=== PATIENT | female | born 1955 | race Caucasian/White ===

== ENCOUNTER 2018-10-03 19:53 | Emergency (ER) | payer OTHER ==
[~2018-10-03] VITALS: Ht 157.5 cm; Wt 119.7 kg
[~2018-10-03 19:53] MED LIST: HYZAAR 100-251 UDTAB; [UNRECOGNIZED DRUG - OTHER]
[2018-10-03] MEDS ORDERED: GLIMEPIRIDE4 MG (20:30)
[2018-10-03] MEDS ORDERED: HYDRALAZINE HCL25 MG (20:31)
[2018-10-03] MEDS ORDERED: CLARITIN10 M2 (20:32)
[2018-10-03] MEDS ORDERED: ATORVASTATIN CA40 MG (20:32)
[2018-10-03] MEDS ORDERED: LANTUS SOL100 UNIT/1 (20:32)
[2018-10-03] MEDS ORDERED: ECOTRIN81 MG (20:33)
== END 2018-10-03 22:52 | disposition home or self-care (01) ==
LOC: ER 19:53
DX: M54.89 Other dorsalgia (principal); I10 Essential (primary) hypertension
CPT/HCPCS: 99283; 93005; 96372 ×2; 96374; J1885; J2360; J3490

== ENCOUNTER 2019-03-01 08:58 | Emergency (ER) | payer OTHER ==
[~2019-03-01] VITALS: Ht 157.5 cm; Wt 117.9 kg
[~2019-03-01 08:58] MED LIST changes: +ATORVASTATIN CA40 MG; +CLARITIN10 M2; +ECOTRIN81 MG; +GLIMEPIRIDE4 MG; +HYDRALAZINE HCL25 MG; +LANTUS SOL100 UNIT/1
== END 2019-03-01 12:08 | disposition home or self-care (01) ==
LOC: ER 08:58
DX: J06.9 Acute upper respiratory infection, unspecified (principal)